=== PATIENT | male | born 1985 | race Caucasian/White ===

== ENCOUNTER 2016-10-04 18:53 | Emergency (ER) | payer MEDICARE, MEDICAID ==
[~2016-10-04] VITALS: Ht 160 cm; Wt 50.0 kg
[2016-10-04 19:09] VITALS: BP 117/74; PULSE 103; RESP 20; O2SAT 99
[2016-10-04] MEDS ORDERED: 0.9% Sodium Chloride 1,000 ML IV ONE (19:47)
[2016-10-04] MEDS ORDERED: Ondansetron 2 mg/mL 2 mL Inj IVPUSH PRN (19:50)
[2016-10-04 20:59] LABS: BASOPHILS % (AUTO) 0.4 % (0-3); EOSINOPHILS % (AUTO) 0.4 % (0-5); MONOCYTES % (AUTO) 7.5 % (4-12); Mean Corpuscular Hemoglobin 29.6 pg (27.0-35.0); Mean Corpuscular Volume 79.7 fL (81-100); Platelet Count 420 bil/L (150-400)
--- NOTE | 2016-10-04 21:12 | ED.REPORT ---
HPI-General Illness Date of Service Oct 04, 2016 ED Provider: Robert Bryant MD A 31 year old male with a history of alcoholism for the last 6-7 years presents to the ED seeking alcohol detox treatment. Last drink was 30 minutes before arrival at ED. The patient arranged a bed at [facility] in [place] through his onsite case manager at [facility]. Patient was driven to ED from [place] by his parents. Associated symptoms include productive cough with green sputum onset this morning, hoarse voice, abdominal pain ,and vomiting x8 onset 0300 with last episode at 1100. The patient reports running a temperature of 99 today. He last took Neltrexone this morning. Nursing Notes Stated Complaint: DETOX Chief Complaint: Substance Abuse Nursing Notes Reviewed: Yes Allergies: Coded Allergies: amoxicillin (Verified Allergy, Mild, Fever, 10/04/16) Scheduled Cetirizine HCl (Zyrtec) 10 Mg Capsule 10 MG PO HS Fluoxetine (Fluoxetine) 20 Mg Capsule 20 MG PO DAILY Montelukast (Montelukast) 10 Mg Tablet 10 MG PO HS Naltrexone (Naltrexone) 50 Mg Tablet 50 MG PO DAILY Pantoprazole DR (Pantoprazole DR) 40 Mg Tablet.dr 40 MG PO DAILY Scheduled PRN Naproxen (Naproxen) 500 Mg Tab 250-500 MG PO BID PRN PRN For Pain Polyethylene Glycol 3350 (Polyethylene Glycol 3350) 17 Gm Powd.pack 17 GM PO DAILY PRN PRN For Constipation Promethazine (Promethazine) 25 Mg Tablet 25 MG PO Q6H PRN PRN For Nausea General Time Seen by MD: 21:08 Chief Complaint Other (Alcohol detox) Hx Obtained From: Patient Arrived By: Walk-in Sudden in Onset?: No Onset Occurred: 1 - 4 hours ago (Last drink was half hour before arrival at ED. ) Symptom Duration: Since onset Severity: Current: Mild Severity: Maximum: Mild Recent Healthcare: Recent doctor visit Similar Sx Previous: No Past Medical History Past Medical History Denies HX of liver problems. Hx of withdrawal but denies associated seizures. Patient is taking Prozac and 500 mg Neltrexone for alcohol cravings Past Surgical History None reported. Social History Patient has appointment set up at [facility] in [place]. Alcohol Use: In recovery (Has been drinking for the last 6-7 years, wants to quit) Other Social History: Good social support Ambulatory Status Independent Review of Systems Hoarse voice. Full Review of Systems Constitutional: Reports: Fever (max 99) Respiratory: Reports: Prod cough, green Cardiovascular: Denies: Chest pain GI: Reports: Abdominal pain, Vomiting Complete sys rev & neg: except as marked. Physical Exam Vital Signs Vital Signs Date Time Temp Pulse Resp B/P Pulse Ox O2 Delivery O2 Flow Rate FiO2 10/05/16 00:54 95 20 122/84 96 Room Air 10/04/16 19:09 37.1 103 20 117/74 99 Room Air Initial VS: Reviewed, Vital signs abnormal Respiratory: Breath sounds normal, Clear to auscultation, No respiratory distress Cardiovascular: Regular rate & rhythm, Heart sounds normal, Intact distal pulses General/Constitutional: Awake, Alert Patient is thin and appears in no distress. Head / Eyes: Atraumatic, Normocephalic, PERRL, EOMI Abdomen: Soft, Non-tender Upper Extremities Upper Extremity / MS: No swelling, No edema Lower Extremity / Pelvis / MS: No swelling, No edema Skin: Warm, Dry Neurologic: Oriented X3, Speech NL Interpretation & Diagnostics Lab Results Interpretation Result Diagram: 10/04/16203910/04/162039 Test 10/04/16 20:40 10/04/16 20:54 White Blood Count 9.2th/mm3 (3.8-10.1) Red Blood Count 5.17mil/mm3 (4.40-5.80) Hemoglobin 15.3g/dL (13.8-17.2) Hematocrit 41.2% (41.0-50.0) Mean Corpuscular Volume 79.7fL (81-100) Mean Corpuscular Hemoglobin 29.6pg (27.0-35.0) Mean Corpuscular Hemoglobin Concent 37.1% (32.0-37.0) Red Cell Distribution Width 12.4% (12.3-15.4) Platelet Count 420bil/L (150-400) Neutrophils (%) (Auto) 73.0% (40-74) Lymphocytes (%) (Auto) 18.5% (14-46) Monocytes (%) (Auto) 7.5% (4-12) Eosinophils (%) (Auto) 0.4% (0-5) Basophils (%) (Auto) 0.4% (0-3) Sodium Level 144mEq/L (134-144) Potassium Level 4.0mEq/L (3.5-5.2) Chloride Level 104mEq/L (97-108) Carbon Dioxide Level 21mmol/L (18-29) Blood Urea Nitrogen 7mg/dL (6-20) Creatinine 0.92mg/dL (0.76-1.27) Estimat Glomerular Filtration Rate 103mL/min (>59) Glucose Level 92mg/dL (60-99) Calcium Level 9.5mg/dL (8.5-10.1) Magnesium Level 2.0mg/dL (1.6-2.6) Total Bilirubin 0.3mg/dL (0.0-1.2) Aspartate Amino Transf (AST/SGOT) 15U/L (0-50) Alanine Aminotransferase (ALT/SGPT) 11U/L (0-44) Alkaline Phosphatase 56U/L (25-150) Total Protein 7.9g/dL (6.4-8.4) Albumin 4.6g/dL (3.4-5.0) Lipase 44U/L (13-60) Hold Nichols Top Tube Received (Received) Alcohols 135mg/dL (0-10) Hold Urine Received (Received) Re-Eval/Medical Decision Med Decision/Clinical Course 31-year-old male with alcohol dependence presents for medical clearance for detox. He had a bed arranged at [facility]. He was medically cleared and will be sent to [facility] with tapering dose of Ativan and his other medications. Source of Hx: Old records Time of Eval: 21:08 Re-Evaluation/Progress Note: Explained diagnosis and plan for discharge in a little while. Patient understands and agrees with the plan. All questions addressed. Counseled Regarding: Diagnosis, Lab results, Need for follow-up, When/why to return to ED Discharge & Departure Primary Impression: Alcohol dependence Substance use status: uncomplicated Qualified Code: F10.20 - Alcohol dependence, uncomplicated Disposition: Home Discharge Condition All VS Reviewed: Yes Condition: Improved Patient Instructions: Alcohol Withdrawal (ED) Additional Instructions: You are medically cleared to go to [facility]. Continue your home medications, see list. You are also provided with an Ativan (lorazepam) taper. Referrals: Manny Sutherland MD (PCP) Scribe Attestation Portions of this note were transcribed by Jose Hunter. I, Dr. Bryant personally performed the history, physical exam and medical decision-making; I reviewed and confirmed the accuracy of the information in the transcribed note. Signed by: Kevin Shelton, 10/05/2016, 0132. copies to: Manny Sutherland MD, Howard L MD Oct 04, 2016 21:12 Jose Hunter Oct 04, 2016 21:17
[2016-10-04] MEDS ORDERED: MONT10TA23 PO (21:56)
[2016-10-04] MEDS ORDERED: PROM25TA14 PO (21:56)
[2016-10-04] MEDS ORDERED: POLY17PO2 PO (21:56)
[2016-10-04] MEDS ORDERED: NALT50TA PO (21:56)
[2016-10-04] MEDS ORDERED: CETI10CA PO (21:56)
[2016-10-04] MEDS ORDERED: PANT40TA3 PO (21:56)
[2016-10-04] MEDS ORDERED: NPR500T PO (21:56)
[2016-10-04] MEDS ORDERED: FLUO20CA25 PO (21:56)
[2016-10-04] MEDS ORDERED: _LORazepam 2 MG Tablet PO SCH (23:10)
[2016-10-05 00:54] VITALS: BP 122/84; PULSE 95; RESP 20; O2SAT 96
== END 2016-10-05 00:55 | disposition home or self-care (01) ==
LOC: SED 18:58
DX: F10.20 Alcohol dependence, uncomplicated (principal); R05 Cough; R10.9 Unspecified abdominal pain; R11.10 Vomiting, unspecified; R49.0 Dysphonia; Y90.6 Blood alcohol level of 120-199 mg/100 ml; Z88.0 Allergy status to penicillin
CPT/HCPCS: 36415; 80053; 81002; 83690; 83735; 85025; 96361; 96374; 99284; G0480; J2405; J7030